=== PATIENT | male | born 1975 | race Caucasian/White ===

== ENCOUNTER 2022-03-29 13:59 | Emergency (ER) | payer OTHER, SELFPAY ==
[2022-03-29] VITALS (7 sets, daily range): BP systolic 134–147; BP diastolic 87–92; PULSE 76–94; RESP 17–32; O2SAT 95–100
--- NOTE | 2022-03-29 | XRR_ITS ---
PROCEDURE INFORMATION: Exam: XR Right Shoulder Exam date and time: 03/29/2022 3:31 PM Age: 46 years old Clinical indication: Injury or trauma; Fall; Blunt trauma (contusions or hematomas); Shoulder; Right; Injury details: Patient fell off of scaffolding TECHNIQUE: Imaging protocol: Radiologic exam of the Right shoulder. Views: 2 or more views. COMPARISON: CR XR shoulder RT min 2V* [id number] 03/29/2022 2:53 PM FINDINGS: Bones/joints: Joint surfaces are preserved. There is no fracture, malalignment or underlying osseous lesion detected. Soft tissues: Normal. XR/XR shoulder RT min 2V* [id number] IMPRESSION: Negative right shoulder
--- NOTE | 2022-03-29 14:14 | CT_ITS ---
WS: [id number] CT CERVICAL TRAUMA TECHNIQUE: Noncontrast CT of the cervical spine with coronal and sagittal reformatted images. CLINICAL INFORMATION: TRAUMA COMPARISON: None. DLP: All CT scans at [facility] use at least one of these dose optimization techniques: automated e xposure control; mA and/or kV adjustment per patient size (includes targeted exams where dose is matc hed to clinical indication); or iterative reconstruction. FINDINGS: Straightening of the normal cervical lordosis. Normal craniocervical junction. Normal C1-C2 articulat ion. Dens is normal in appearance. Normal occipital condyles. No high-grade spinal canal narrowing. N ormal C1 ring. No evidence of acute fracture or dislocation. Small amount of fluid RIGHT mastoid air cells. Temporal bone fracture described on the head CT. CT/CT cervical spin wo con* [id number] IMPRESSION: No evidence of acute fracture or dislocation.
--- NOTE | 2022-03-29 14:15 | CT_ITS ---
WS: [id number] CT CHEST, ABDOMEN, AND PELVIS TECHNIQUE: Contrast-enhanced CT of the chest, abdomen, and pelvis with coronal and sagittal reformatt ed images. CLINICAL INFORMATION: TRAUMA COMPARISON: None. DLP: 1416.[address] scans at [facility] use at least one of these dose optimization techniques: automated e xposure control; mA and/or kV adjustment per patient size (includes targeted exams where dose is matc hed to clinical indication); or iterative reconstruction. CT CHEST: Lungs are well aerated. No acute pulmonary infiltrates. No pneumothorax. Slight bibasilar atelectasis . Normal caliber thoracic aorta. No evidence of acute aortic injury. No significant pericardial effus ion. A few slightly prominent pretracheal lymph nodes likely reactive measuring up to 10 mm. Small esophageal hiatal hernia. CT ABDOMEN AND PELVIS: Normal liver. Normal portal vein and splenic vein. Normal spleen. Small esophageal hiatal hernia. Air -fluid level in the stomach. Normal caliber abdominal aorta. Adrenal glands are normal. Normal renal parenchymal enhancement. No hydronephrosis. Partial malrotation LEFT kidney. No free fluid in the abdomen or pelvis. Small fat-containing umbilical hernia. Normal pancreatic pare nchymal enhancement. Normal thoracic spine alignment. Normal lumbar spine alignment. Disc bulging L4-L5 and L5-S1. L5 is p artially lumbarized. CT/CT chest abd pel w con* IMPRESSION: No acute traumatic findings in the chest abdomen or pelvis.
--- NOTE | 2022-03-29 14:18 | CT_ITS ---
WS: [id number] CT HEAD TECHNIQUE: Noncontrast CT of the head obtained from the skullbase to the vertex. CLINICAL INFORMATION: TRAUMA- FALL COMPARISON: None. DLP: All CT scans at [facility] use at least one of these dose optimization techniques: automated e xposure control; mA and/or kV adjustment per patient size (includes targeted exams where dose is matc hed to clinical indication); or iterative reconstruction. FINDINGS: Soft tissue contusion overlying the RIGHT parietal bone. Irregular fractures involving the squamous p ortion of the RIGHT temporal bone overlying the RIGHT middle cranial fossa with additional longitudin al oriented fracture involving the petrous portion of the RIGHT temporal bone. This involves the mast oid air cells and small amount of fluid or blood products in the RIGHT mastoid air cells. Associated subcutaneous emphysema. Fracture extends cephalad involving the temporal parietal calvarium. Otic cap fran appears intact. No significant fluid in the EAC. Mild mucosal thickening along the tympanic membrane. Trace fluid in the middle ear. Retention cyst in the sphenoid sinus. Paranasal sinuses are well aerated. LEFT mastoi d air cells are well aerated. Tiny trace of fluid or extra-axial blood products deep to the RIGHT temporal fracture along the later al RIGHT temporal lobe with a small amount of intracranial air. No mass effect or midline shift. Norm al posterior fossa. No hydrocephalus. CT/CT head wo con* [id number] IMPRESSION: 1. Irregular fractures involving the squamous portion of the RIGHT temporal michel ne overlying the RIGHT middle cranial fossa. No significant depression. 2. Additional longitudinal temporal bone fracture involving the petrous portio n of the temporal bone. Small amount of fluid or blood products in the mastoid air cells. Trace fluid in the middle ear. Otic capsule appears intact. 3. Subcutaneous emphysema in the scalp with a small amount of intracranial air overlying the RIGHT superolateral temporal lobe. Tiny trace of fluid or blood products deep to the superior temporal bone fracture. 4. No mass effect or midline shift. No hydrocephalus. 5. LEFT mastoid air cells well aerated. 6. No other acute intracranial findings Notified Alex Laughlin DO at 03/29/2022 3:11 PM.
[2022-03-29] MEDS: iohexol 350 mg/mL 500 mL Btl (per mL) IV (14:33)
--- NOTE | 2022-03-29 14:50 | XRR_ITS ---
PROCEDURE INFORMATION: Exam: XR Left Shoulder Exam date and time: 03/29/2022 2:53 PM Age: 46 years old Clinical indication: Injury or trauma; Fall; Blunt trauma (contusions or hematomas); Shoulder; Right; Injury details: History--patient fell off of scaffolding TECHNIQUE: Imaging protocol: Radiologic exam of the Left shoulder. Views: 2 or more views. Total images: 1 COMPARISON: CT chest abd pel w con* 03/29/2022 2:26 PM FINDINGS: Bones/joints: Normal. Soft tissues: Normal. XR/XR shoulder LT min 2V* [id number] IMPRESSION: No acute findings.
--- NOTE | 2022-03-29 14:50 | W.ED.TRAUMA ---
HPI - Trauma General: Chief Complaint: Trauma Stated Complaint: fall, head injury Time Seen by Provider: 03/29/22 14:24 Source: other (Coworker) Mode of arrival: wheelchair Limitations: altered mental status History of Present Illness: History is predominantly provided by his coworker who witnessed the fall. History is that the patient was standing on a rolling scaffolding approximately 3 feet off of a concrete surface attaching drywall. Apparently the wheels on the mobile scaffolding were not locked and it moved and he fell off the scaffolding striking his head and right side. Coworker states he was out and had a loss of consciousness approximately 30 seconds or more. Coworker did not witness any seizure activity. He states once he became conscious he attempted to move him and noted there was some blood around his ear brought him to the emergency department. The patient is unsure of what happened to him. He states he has pain in his right shoulder and has a headache but otherwise cannot offer any additional information. MD complaint: fall Loss of Consciousness: yes Location: head Location - Extremities: Right: shoulder Associated symptoms: Reports no associated symptoms and headache(s); Denies chills, fever(s), nausea, syncope or vomiting Review of Systems Const: Denies: fever(s) or chills Eyes: Denies: change in vision Card: Denies: syncope or pre-syncope Resp: Denies: productive cough or non-productive cough GI: Denies: nausea or vomiting : Denies: difficulty urinating or dysuria Musc: Reports: extremity pain Skin/Breast: Denies: rash Neuro: Reports: headache(s) Physical Exam Narrative: EXAM NARRATIVE: Patient is alert and has spontaneous eye opening. He perseverates about why he is here and what is going on. Const: COMMON NORMALS: average body habitus GENERAL APPEARANCE: cooperative ORIENTATION/CONSCIOUSNESS: Yes awake and Yes oriented to person HENMT: COMMON NORMALS: normocephalic, atraumatic, external ears normal, Normal external nose present, moist oral mucous membranes and oropharynx normal HEAD & SCALP: normocephalic and atraumatic FACE & SINUS: normal facial exam and face symmetric NOSE: Normal external nose present; no Epistaxis present EXTERNAL EAR: Yes external ears normal EXTERNAL AUDITORY CANAL: Abnormal EAC present (He has been what appears to be blood in the posterior right EAC. The TM ap) Eye: COMMON NORMALS: Equal, round and reactive pupils present, EOMs intact bilaterally and conjunctivae normal CONJUNCTIVA: Yes conjunctivae normal PUPIL: Yes Equal, round and reactive pupils present Neck/C-Spine: COMMON NORMALS: no JVD and No carotid bruits GENERAL: Yes normal visual inspection CERVICAL SPINE: Yes collar present Chest: COMMONS NORMALS: normal inspection of the chest and normal palpation of entire chest wall Resp: COMMON NORMALS: normal respiratory effort, No retractions, No use of accessory muscles and clear to auscultation bilaterally AUSCULTATION: clear to auscultation bilaterally Cardio: COMMON NORMALS: no JVD, regular rate, No murmurs present (Cardio) and Peripheral pulses 2+ throughout RATE: regular rate PERIPHERAL PULSES: Peripheral pulses 2+ throughout GI: COMMON NORMALS: Normal to inspection, nondistended, normoactive bowel sounds present, Soft to palpation and non-tender PALPATION: Yes Soft to palpation : COMMON NORMALS: Yes no CVA tenderness BLADDER/KIDNEY EXAM: Yes no CVA tenderness Back/Pelvis: COMMON NORMALS: no CVA tenderness, thoracic and lumbar spine normal to inspection and no thoracic nor lumbar tenderness PELVIS: Yes no pain with anterior-posterior compression and Yes no pain with lateral compression SACROILIAC JOINTS: Yes SI joints normal Extremity: COMMON NORMALS: normal to inspection, no calf tenderness and no pedal edema RIGHT UPPER EXTREMITY: Yes shoulder joint (Tenderness over the acromial area and the lateral deltoid. Decreased range) Neuro: MAT COMA SCALE: document GCS findings Mat coma scale eye opening: Spontaneous Mat coma scale verbal response: Confused Mat coma scale motor response: Obey commands [place] coma scale total score: 14 COMMON NORMALS: moves all extremities, no focal motor deficits and no sensory deficits noted SENSORIUM/ORIENTATION: Yes oriented to person Skin: COMMON NORMALS: no rashes or lesions noted and no wounds GENERAL SKIN EXAM: no rashes or lesions noted Course Reevaluation(s): Reevaluation #1: Patient remains alert and stable. Cervical collar was removed and repeat evaluation of the cervical spine clinically. He had no midline tenderness to palpation. No step-offs palpated. He was able to actively range his head 45 degrees left and right as well as forward bend 15 degrees without any discomfort. Also discussed nature of current injuries with patient and family. Time: 15:28 Consultations: Consultation #1: We discussed case with trauma services at [facility] who agreed except the patient in transfer. The accepting physician is trauma surgeon Dr. Clifton Time: 16:01 Vital Signs: Vital signs: Vital Signs Pulse Rate 76 03/29/22 15:15 Respiratory Rate 24 H 03/29/22 15:15 Blood Pressure 134/88 03/29/22 14:17 Pulse Oximetry 100 03/29/22 15:15 Oxygen Delivery Me thod 03/29/22 14:59 MDM - Trauma Medical Decision Making 46-year-old normally healthy male who had a fall from height approximately 3 feet scaffolding on concrete surface. He was witnessed to strike his head and having associated approximately 30 to 60 seconds loss of consciousness. His emergency department evaluation was notable that he had blood in his right EAC and perseverating regarding his current situation. Work-up in the emergency department discovered skull fractures with no evidence of intracranial hemorrhage. His cervical spine was cleared radiographically and clinically and no other evidence of injury at this time. Because of the nature of his skull fracture and need for neurosurgical consult Tatian and comanagement which is not available at this facility is being transferred to [facility]. Medical Records I reviewed the patient's medical records. Lab Data I reviewed the patient's lab results. 03/29/22 14:40 03/29/22 14:40 Radiology Impressions Cervical Spine CT 03/29/22 14:14 IMPRESSION: No evidence of acute fracture or dislocation. Chest/Abdomen/Pelvis CT 03/29/22 14:15 IMPRESSION: No acute traumatic findings in the chest abdomen or pelvis. Head CT 03/29/22 14:18 IMPRESSION: 1. Irregular fractures involving the squamous portion of the RIGHT temporal bone overlying the RIGHT middle cranial fossa. No significant depression. 2. Additional longitudinal temporal bone fracture involving the petrous portion of the temporal bone. Small amount of fluid or blood products in the mastoid air cells. Trace fluid in the middle ear. Otic capsule appears intact. 3. Subcutaneous emphysema in the scalp with a small amount of intracranial air overlying the RIGHT superolateral temporal lobe. Tiny trace of fluid or blood products deep to the superior temporal bone fracture. 4. No mass effect or midline shift. No hydrocephalus. 5. LEFT mastoid air cells well aerated. 6. No other acute intracranial findings Notified Alex Laughlin DO at 03/29/2022 3:11 PM. Laboratory Results WBC 7.5 10^3/uL (4.0-10.0) 03/29/22 14:40 RBC 4.44 10^6/uL (4.1-5.3) 03/29/22 14:40 Hgb 13.5 g/dL (11.7-16.6) 03/29/22 14:40 Hct 39.8 % (42.0-52.0) L 03/29/22 14:40 MCV 89.6 fl (80-94) 03/29/22 14:40 MCH 30.4 pg (28.0-34.0) 03/29/22 14:40 MCHC 33.9 g/dL (30.0-36.0) 03/29/22 14:40 RDW 12.1 % (12.1-15.1) 03/29/22 14:40 Plt Count 254 10^3/cmm (130-400) 03/29/22 14:40 MPV 9.7 fL (7.4-10.4) 03/29/22 14:40 Neut % (Auto) 75.2 % 03/29/22 14:40 Lymph % (Auto) 15.0 % 03/29/22 14:40 [place] % (Auto) 7.0 % 03/29/22 14:40 Eos % (Auto) 1.7 % 03/29/22 14:40 Baso % (Auto) 0.7 % 03/29/22 14:40 Neut # (Auto) 5.66 10^3/uL (1.8-7.7) 03/29/22 14:40 Lymph # (Auto) 1.1 10^3/uL (0.8-4.8) 03/29/22 14:40 [place] # (Auto) 0.5 10^3/uL (0.2-0.9) 03/29/22 14:40 Eos # (Auto) 0.1 10^3/uL (0.0-0.8) 03/29/22 14:40 Baso # (Auto) 0.1 10^3/uL (0.0-0.1) 03/29/22 14:40 Nucleated RBC % (auto) 0 % 03/29/22 14:40 Nucleated RBCs # 0.0 /100WBC 03/29/22 14:40 Sodium 134 mmol/L (136-145) L 03/29/22 14:40 Potassium 4.4 mmol/L (3.5-5.1) 03/29/22 14:40 Chloride 102 mmol/L (98-107) 03/29/22 14:40 Carbon Dioxide 21 mmol/L (22-29) L 03/29/22 14:40 Anion Gap 15.4 (5-19) 03/29/22 14:40 BUN 14 mg/dL (6-20) 03/29/22 14:40 Creatinine 0.6 mg/dL (0.7-1.2) L 03/29/22 14:40 GFR Calculation 145.0 mL/min (90-130) H 03/29/22 14:40 Glucose 142 mg/dL (65-115) H 03/29/22 14:40 Calculated Osmolality 281 mOsm/kg (285-295) L 03/29/22 14:40 Calcium 8.6 mg/dL (8.5-10.5) 03/29/22 14:40 Total Bilirubin 0.3 mg/dL (0.15-1.2) 03/29/22 14:40 AST 21 U/L (0-40) 03/29/22 14:40 ALT 19 U/L (0-41) 03/29/22 14:40 Alkaline Phosphatase 95 U/L (40-130) 03/29/22 14:40 Total Protein 6.3 g/dL (6.6-8.7) L 03/29/22 14:40 Albumin 4.0 g/dL (3.5-5.2) 03/29/22 14:40 Globulin 2.3 g/dL (1.3-4.6) 03/29/22 14:40 Discharge Plan Discharge Patient Disposition: Xfer Short-Term Hosp Clinical Impression: Fall, Skull fractures Condition: Stable Prescriptions: No Action No Known Home Medications 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
[2022-03-29 14:59] LABS: Basophils # 0.1 10^3/uL (0.0-0.1); Basophils % 0.7 %; Eosinophils # 0.1 10^3/uL (0.0-0.8); Eosinophils % 1.7 %; Hematocrit 39.8 % (42.0-52.0); Hemoglobin 13.5 g/dL (11.7-16.6); Lymphocytes # 1.1 10^3/uL (0.8-4.8); Mean Corpuscular HGB Conc 33.9 g/dL (30.0-36.0); Mean Corpuscular Hemoglobin 30.4 pg (28.0-34.0); Mean Corpuscular Volume 89.6 fl (80-94); Mean Platelet Volume 9.7 fL (7.4-10.4); Monocytes # 0.5 10^3/uL (0.2-0.9); Neutrophils # 5.66 10^3/uL (1.8-7.7); Neutrophils % 75.2 %; Nucleated Red Blood Cells % 0 %; Platelet Count 254 10^3/cmm (130-400); Red Blood Count 4.44 10^6/uL (4.1-5.3); Red Cell Distribution Width 12.1 % (12.1-15.1); White Blood Count 7.5 10^3/uL (4.0-10.0)
[2022-03-29 15:39] LABS: Alanine Aminotransferase 19 U/L (0-41); Alkaline Phosphatase 95 U/L (40-130); Anion Gap 15.4 (5-19); Aspartate Amino Transferase 21 U/L (0-40); Blood Urea Nitrogen 14 mg/dL (6-20); Calcium 8.6 mg/dL (8.5-10.5); Carbon Dioxide 21 mmol/L (22-29); Chloride 102 mmol/L (98-107); Globulin 2.3 g/dL (1.3-4.6); Glucose 142 mg/dL (65-115); Osmolality Calculated 281 mOsm/kg (285-295); Potassium 4.4 mmol/L (3.5-5.1); Sodium 134 mmol/L (136-145); Total Bilirubin 0.3 mg/dL (0.15-1.2); Total Protein 6.3 g/dL (6.6-8.7)
[2022-03-29] MEDS: tetanus-dipt-pertussis 0.5 mL SDV IM (15:50)
[2022-03-29] MEDS: fentaNYL 50 mcg/mL INJ 2mL 25 MCG IVP (15:59)
[2022-03-29] MEDS: ondansetron 2 mg/ML SDV 2 mL 4 MG IVP (16:38)
== END 2022-03-29 16:40 | disposition short-term general hospital (02) ==
PROVIDERS: Emergency Provider Emergency Medicine
DX: S02.19XA Other fracture of base of skull, initial encounter for closed fracture (principal); W12.XXXA Fall on and from scaffolding, initial encounter; Z23 Encounter for immunization
CPT/HCPCS: 70450; 71260; 72125; 73030; 74177; 80053; 85025; 90471; 90715; 96374; 96375; 99285; J2405; J3010; Q9967

== ENCOUNTER 2022-03-30 20:32 | Emergency (ER) | payer OTHER, SELFPAY ==
[2022-03-30 20:45] VITALS: BP 147/94; PULSE 70; RESP 18; TEMP 36.4; O2SAT 96
--- NOTE | 2022-03-30 21:14 | CTR_ITS ---
PROCEDURE INFORMATION: Exam: CT Head Without Contrast Exam date and time: 03/30/2022 9:55 PM Age: 46 years old Clinical indication: Injury or trauma; Fracture, traumatic; Other: N/v lethargy; Patient HX: C/O continued head pain with n/v and lethargy. Sustained a RT temporal fracture from fall off of scaffold on 03/29/2022; Additional info: N/v, HX recent head trauma TECHNIQUE: Imaging protocol: Computed tomography of the head without contrast. Radiation optimization: All CT scans at this facility use at least one of these dose optimization techniques: automated exposure control; mA and/or kV adjustment per patient size (includes targeted exams where dose is matched to clinical indication); or iterative reconstruction. COMPARISON: CT head wo con* [id number] 03/29/2022 2:10 PM RADIATION DOSE METRICS: Total DLP (mGy-cm): 1057.58 FINDINGS: Brain: Minimal extra-axial blood products/fluid deep to the temporal bone fracture are unchanged. No new hemorrhage. No mass effect. No midline shift. No acute infarct. Cerebral ventricles: No ventriculomegaly. Paranasal sinuses: Scattered paranasal sinus mucosal thickening, without air-fluid level present. Mastoid air cells: Moderate right mastoid effusion is unchanged. Bones/joints: Not significantly displaced fracture of the right squamous temporal bone with additional longitudinally oriented otic capsule sparing mastoid right temporal bone fracture, unchanged. Superior extension of the fracture line of the parietal bone is unchanged. Minimal overlying subcutaneous emphysema is unchanged. Soft tissues: See Mastoid air cells finding. CT/CT head wo con* [id number] IMPRESSION: 1. Stable head CT. 2. Stable right temporal bone fractures, extending superior to the parietal bone. Stable minimal extra-axial blood product/fluid deep to the fracture site. No new hemorrhage. No mass effect or midline shift.
--- NOTE | 2022-03-30 21:54 | PC.NURSE ---
to CT per wheelchair
--- NOTE | 2022-03-30 22:11 | W.ED.HEATRA ---
HPI - Head Injury General: Chief complaint: Nausea/Vomiting/Diarrhea Stated complaint: post concussion; vomitting blood; chills Time Seen by Provider: 03/30/22 22:11 History of Present Illness: 46-year-old male patient comes in [facility] for concerns of nausea and headache. Patient had a trauma yesterday afternoon when he fell off a scaffolding striking his head against concrete. Patient sustained a skull fracture. Today he was concerned due to some nausea and vomiting which was noticeable for some blood. Patient appears nontoxic. Patient appears in moderate pain. Patient reports not tolerating hydrocodone and minimal relief with ondansetron. Associated symptoms: Reports nausea Review of Systems GI: Reports: nausea Neuro: Reports: headache(s) Physical Exam Const: COMMON NORMALS: patient oriented x3 HENMT: HEAD & SCALP: scalp tenderness (Right side) EXTERNAL EAR: Yes other (Blood in the right ear canal) Eye: COMMON NORMALS: Equal, round and reactive pupils present PUPIL: Yes Equal, round and reactive pupils present Neck/C-Spine: COMMON NORMALS: full ROM Resp: COMMON NORMALS: normal respiratory effort and clear to auscultation bilaterally AUSCULTATION: clear to auscultation bilaterally Cardio: COMMON NORMALS: regular rate and regular rhythm RATE: regular rate RHYTHM: regular rhythm GI: COMMON NORMALS: Soft to palpation and non-tender PALPATION: Yes Soft to palpation Extremity: COMMON NORMALS: normal to inspection Neuro: COMMON NORMALS: patient oriented x3 Skin: COMMON NORMALS: turgor normal GENERAL SKIN EXAM: turgor normal Course Vital Signs: Vital signs: Vital Signs Temperature 97.6 F 03/30/22 20:45 Pulse Rate 70 03/30/22 22:19 Respiratory Rate 22 H 03/30/22 22:19 Blood Pressure 150/93 03/30/22 22:19 Pulse Oximetry 97 03/30/22 22:19 Oxygen Delivery Me thod 03/30/22 22:19 MDM - Head Injury Medcial Decision Making Patient comes in today for complaints of nausea and headache with emesis. Patient also reports some blood in his emesis that was noted by his female significant other. On exam abdomen soft nontender. No pain in the ribs is noted. Lungs are clear to auscultation. Patient does have dried blood in the right nares and right ear canal. Pupils are equal and reactive. Differential diagnosis includes but not limited to epistaxis, skull fracture, concussion, intracranial bleeding. CT of the head noted a stable fracture of the skull with no increase intracranial bleeding or other abnormality. Believe the blood that was noted in the emesis was most likely due to the drainage. Patient was treated with ketorolac and Reglan for his symptoms. Patient is scheduled for appointment with neurology tomorrow. Patient will keep his appointment and follow-up with them in the morning. Lab Data Radiology Impressions Head CT 03/30/22 21:14 IMPRESSION: 1. Stable head CT. 2. Stable right temporal bone fractures, extending superior to the parietal bone. Stable minimal extra-axial blood product/fluid deep to the fracture site. No new hemorrhage. No mass effect or midline shift. Discharge Plan Discharge Patient Disposition: Home Clinical Impression: Skull fractures Condition: Stable Prescriptions: No Action No Known Home Medications Discharge Orders: Discharge ED (Routine); Ordered 03/30/22 Ordered By: Tom Cruz Discharge Diet: Usual diet Discharge Activity: Increase activity as tolerated Patient Instructions: Skull Fracture (ED) Activity Restrictions/Additional Instructions: Home and rest. Continue with routine care as directed. Use medication as tolerated. You may use Tylenol or ibuprofen for control of pain. Use hydrocodone for severe pain. Follow-up with primary care for further instruction. Keep appointments as scheduled tomorrow. 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
[2022-03-30 22:19] VITALS: BP 150/93; PULSE 70; RESP 22; O2SAT 97
[2022-03-30] MEDS: metoclopramide 5 mg/mL SDV 2 mL 10 MG IM (22:29)
[2022-03-30] MEDS: ketorolac 30 mg/mL INJ IM (22:29)
== END 2022-03-30 23:30 | disposition home or self-care (01) ==
PROVIDERS: Emergency Provider Nurse Practitioner Family
DX: S02.19XA Other fracture of base of skull, initial encounter for closed fracture (principal); W12.XXXA Fall on and from scaffolding, initial encounter
CPT/HCPCS: 70450; 96372; 99284; J1885; J2765

== ENCOUNTER 2022-07-05 06:58 | Outpatient (CLI) | payer OTHER, SELFPAY ==
--- NOTE | 2022-07-05 07:15 | MR_ITS ---
WS: [id number] MRI HEAD WITH CONTRAST WITH ATTENTION TO THE INTERNAL AUDITORY CANALS TECHNIQUE: Sagittal T1, T2 axial, T2 axial flair, axial susceptibility weighted imaging, axial diffus ion weighted images, and coronal T2 images were obtained. Pre and post T1 axial and post T1 coronal i mages. ADC and FSPGR images. Post gadolinium images with attention to the internal auditory canals. A xial fiesta imaging. CLINICAL INFORMATION: postconcussional syndrome COMPARISON: CT March 30, 2022 and MRI 2005 FINDINGS: Chiari I malformation unchanged since 2005. Mild crowding at the foramen magnum. No hydrocephalus. No restricted diffusion to suggest acute ischemia. Ventricular system and basal cisterns are patent. A few small foci of T2 hyperintensity in the periventricular white matter nonspecific in a patient this age but can be seen with migraine headaches. Normal vascular flow voids at the skull base. No extra-axial fluid collections. No evidence of mass o r mass effect. Mild mucosal thickening in the paranasal sinuses. Mastoid air cells well aerated. Prev iously described RIGHT temporal bone fracture better evaluated on the prior CT. Presented described s ubdural hematoma has resolved Proximal 7th and 8th cranial nerves appear normal. RIGHT middle ear is well aerated. RIGHT mastoid air cells well aerated. Cavernous sinuses and Meckel's cave appear normal . No evidence of enhancing IAC or CP angle mass. No abnormal intracranial enhancement. Normal dural reba ous sinuses. Normal pituitary enhancement. Tiny focus of hypoenhancement within the pituitary likely incidental tiny pars intermedia cyst. MR/MR iac's wo/w con* [id number] IMPRESSION: 1. No evidence of enhancing IAC or CP angle mass. 2. Mastoid air cells well aerated. Middle ears are well aerated bilaterally. 3. Proximal 7th and 8th cranial nerves appear normal. Previously described RIG HT anterior temporal bone fracture better appreciated on the prior PET/CT. 4. Stable Chiari I malformation. No hydrocephalus. Mild crowding at the forame n magnum unchanged since 2005. Recommend MRI cervical spine to exclude cervical syrinx. No prior cervical MRI imaging. 5. A few tiny foci of T2 hyperintensity periventricular white matter of doubtf ul clinical significance but can be seen with migraine headaches. 6. No hemosiderin on susceptibly weighted images.
[2022-07-05] MEDS: gadobenate dimeglumine 20 mL vial IV (08:07)
== END 2022-07-05 06:59 | disposition home or self-care (01) ==
LOC: RAD 07:02
PROVIDERS: Visit Provider Otolaryngology
DX: F07.81 Postconcussional syndrome (principal); H91.91 Unspecified hearing loss, right ear; H93.11 Tinnitus, right ear; S02.19XD Other fracture of base of skull, subsequent encounter for fracture with routine healing; X58.XXXD Exposure to other specified factors, subsequent encounter; G93.5 Compression of brain
CPT/HCPCS: 70553; A9577

== ENCOUNTER 2022-10-10 18:26 | Emergency (ER) | payer OTHER, SELFPAY ==
[2022-10-10 18:32] VITALS: BP 150/99; PULSE 107; RESP 18; TEMP 36.8; O2SAT 96; BMI 32.1
[2022-10-10 21:44] VITALS: BP 136/105; PULSE 81; RESP 18; O2SAT 98
--- NOTE | 2022-10-10 21:54 | ED_ITS ---
HPI - General Adult General: Chief complaint: Airway/Esophagus Foreign Body Stated complaint: Something Stuck in Throat Time Seen by Provider: 10/10/22 21:39 Source: patient Mode of arrival: ambulatory Limitations: no limitations History of Present Illness: 47-year-old male states he was eating steak this afternoon and has a piece of steak stuck in his esophagus. States he has not been able to tolerate solids or liquids over the last 7 hours. He states he had this happen once before 5 years ago had to have an EGD. Denies any vomiting Associated symptoms: Deny chest pain, dyspnea, headache(s), nausea, rash or vomiting Review of Systems Const: Denies: fever(s) or chills ENMT: Denies: throat pain or dental pain Card: Denies: chest pain Resp: Denies: dyspnea GI: Denies: abdominal pain, nausea, vomiting or diarrhea : Denies: dysuria Musc: Denies: neck pain or back pain Skin/Breast: Denies: rash Neuro: Denies: headache(s) PFSH ED PFSH: Medical History Hx of fracture of skull Traumatic rupture of ear drum Surgical History Hx of appendectomy Hx of hernia repair Social History Smoking and tobacco status: never smoked Physical Exam Const: COMMON NORMALS: no acute distress, patient oriented x3 and healthy appearing HENMT: COMMON NORMALS: normocephalic and atraumatic HEAD & SCALP: normoce phalic and atraumatic Eye: COMMON NORMALS: conjunctivae normal CONJUNCTIVA: Yes conjunctivae normal Neck/C-Spine: COMMON NORMALS: full ROM and supple Chest: COMMONS NORMALS: normal inspection of the chest Resp: COMMON NORMALS: normal respiratory effort Cardio: COMMON NORMALS: regular rate and No murmurs present (Cardio) RATE: regular rate GI: INSPECTION: Yes normal to inspection Extremity: COMMON NORMALS: normal to inspection and full ROM Neuro: COMMON NORMALS: patient oriented x3, moves all extremities and no focal motor deficits Psych: COMMON NORMALS: mental status grossly normal, Normal thought process present and cooperative THOUGHT PROCESS: Normal thought process present Skin: COMMON NORMALS: no rashes or lesions noted and no wounds GENERAL SKIN EXAM: no rashes or lesions noted Course Vital Signs: Vital signs: Vital Signs Temperature 98.2 F 10/10/22 18:32 Pulse Rate 81 10/10/22 21:44 Respiratory Rate 18 10/10/22 21:44 Blood Pressure 136/105 10/10/22 21:44 Pulse Oximetry 98 10/10/22 21:44 Oxygen Delivery Me thod Room Air 10/10/22 21:44 MDM - General Adult Medical Decision Making Patient presents with an esophageal food impaction spoke to surgeon on-call he is going to take to GI lab for an EGD at this time. 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
--- NOTE | 2022-10-10 22:44 | P.CONIM_ITS ---
Providers/Reason For Consult Consulting Physician/Specialty*: General Surgery Reason for Consult*: Esophageal foreign body Requesting Physician: Dr. Keny Anders History of Present Illness History of Present Illness Marco Macario is a 47 year old male Who presents to our emergency department complaining of difficulty swallowing after ingesting steak for dinner. Patient states that around 3 PM he swallowed a piece of steak after which he noticed he had difficulty swallowing and could not regurgitate the food or have it pass d own with water. He denies any other symptoms.Has not had any vomit after he swallowed a steak. Review of Systems Review of Systems: All systems PM: reviewed and no additional remarkable complaints except as stated Constitutional: normal sleep Ears, nose, mouth, throat: tinnitus Respiratory: other (normal ) Gastrointestinal: other (dysphagia during current presentation) Medications/Allergies Home Medications Medication Instructions Recorded Confirmed Last Taken Type No Known Home Medications 03/29/22 09/11/22 Unknown History Allergies Allergy/AdvReac Type Severity Reaction Status Date / Time morphine Allergy Unknown Unknown Verified 09/11/22 15:46 PFSH Acute PFSH: Medical History Hx of fracture of skull Traumatic rupture of ear drum Surgical History Hx of appendectomy Hx of hernia repair Social History Smoking and tobacco status: never smoked Vitals/I&O/Wt Last Vital Signs Temp 98.2 F 10/10/22 18:32 Pulse 81 10/10/22 21:44 Resp 18 10/10/22 21:44 BP 136/105 10/10/22 21:44 Pulse Ox 98 10/10/22 21:44 O2 Del Method Room Air 10/10/22 21:44 Weight last 48 hrs Weight 205 lb Physical Exam Narrative: General : Patient is well developed , no acute distress, oriented x3 Head : Normal cephalic, a-traumatic. Throat : mild drooling, no evidence of foreign body visualized from mouth Lungs : Equal chest rise bilaterally, no use of accessory muscles, trachea is midline. CV : Rate and rhythm are normal. Abdomen : Soft, ND, NT, no g/r/m Back : non-tender to palpation, no CVA tenderness. A&P Assessment and plan (1) Food impaction of esophagus: 47-year-old male who presents with food impaction in the esophagus, patient has history of previous events of food impaction and he usually is able to pass the full by swallowing or regurgitating the food. Today he ate a steak around 3 PM and after that he has not been able to swallow any liquids feels like the steak has gotten stuck in his esophagus. Physical examination is unremarkable. Vital signs are within normal limits. At this point we plan to take the patient to the endoscopy suite to attempt at retrieval of the esophageal foreign body. Patient was informed of the risk and benefits of the procedure including the risk of esophageal perforation that we will require additional surgical intervention and management at higher level of care facility. He was also inform of the risk of esophageal mucosa Tearing, Bleeding, need for additional procedures, need for prolonged hospital stay. Patient acknowledges the risks and decides to proceed with EGD and retrieval of foreign body. Coding Level of Care Code 24419 Diagnoses Food impaction of esophagus T18.128A
--- NOTE | 2022-10-10 22:48 | P.ANESASSM_ITS ---
Pre-Anesthetic Assessment Height/Weight: Height 1.7 m Weight 92.986 kg Temp Pulse Resp BP Pulse Ox O2 Del Method 98.2 F 81 18 136/105 98 Room Air 10/10/22 18:32 10/10/22 21:44 10/10/22 21:44 10/10/22 21:44 10/10/22 21:44 10/10/22 21:44 Operation Date: 10/10/22 23:00 Proposed Procedures p Foreign Body Removal- Food Bolus(Not Applicable) - Medhat Lehman MD Familial anesthetic complications: None Was Beta Sivakumar taken within 24 hours: N/A Was Clonidine taken within 24 hours: N/A Last intake: > 8 hrs Social No alcohol and No tobacco Exam alert, oriented x 3, clear to auscultation bilaterally and regular rate & rhythm Airway Mallampati: Class II Dentition: full Pulmonary hx of pleurisy Neuropsych hx skull fracture Anesthetic Plan ASA status: 2 Anesthesia: General Risk of > 500 ml blood loss (7ml/kg in children): No Medications/Allergies Home Medications Medication Instructions Recorded Confirmed Last Taken Type No Known Home Medications 03/29/22 09/11/22 Unknown History Allergies Allergy/AdvReac Type Severity Reaction Status Date / Time morphine Allergy Unknown Unknown Verified 09/11/22 15:46 [facility] Anesthesia Medical History Hx of fracture of skull Traumatic rupture of ear drum Surgical History Hx of appendectomy Hx of hernia repair Social History Smoking and tobacco status: never smoked Data Anesthesia Cardiac Studies: No Data to Display
[2022-10-10 22:50] VITALS: BP 150/105; PULSE 84; RESP 18; O2SAT 94
[2022-10-10] MEDS: sodium chloride 0.9% 1,000 ML 30 ML IV (22:54)
[2022-10-11] VITALS (9 sets, daily range): BP systolic 125–165; BP diastolic 70–114; PULSE 70–77; RESP 13–27; TEMP 36.1; O2SAT 95–98
--- NOTE | 2022-10-11 00:45 | ANE.PACU2 ---
Inpatient post-anesthesia follow up: Airway intact: Yes Vital signs: Temperature 97.0 F Pulse Rate 70 Respiratory Rate 15 Blood Pressure 162/80 Pulse Oximetry 98 Oxygen Delivery Me thod Room Air Oxygen Flow Rate Fraction of Inspir ed Oxygen Hydration adequate: Yes Nausea and vomiting: No Pain level: 1 Mental status: Baseline
--- NOTE | 2022-10-12 08:59 | DCPLANNER ---
equipment hire manager called patient due to no primary care physician - patient declines at this time.
== END 2022-10-10 22:49 | disposition home or self-care (01) ==
PROVIDERS: Surgery; Emergency Provider Emergency Medicine
DX: T18.128A Food in esophagus causing other injury, initial encounter (principal); X58.XXXA Exposure to other specified factors, initial encounter
CPT/HCPCS: 43247; 96360; 96361; 99255; 99285; J0330; J1100; J2405; J2704; J3010; J7030

== ENCOUNTER → 2023-02-20 14:15 | Outpatient (BNVA) | payer OTHER, SELFPAY | PROVIDERS: PCP Family Medicine; Visit Provider Family Medicine | DX: R07.9 Chest pain, unspecified (principal); R06.02 Shortness of breath; Z83.2 Family history of diseases of the blood and blood-forming organs and certain disorders involving the immune mechanism; R00.2 Palpitations | CPT/HCPCS: 80048; 80061; 83036; 83735; 84443; 85025; 85651; 86038; 86140; 86431 ==

== ENCOUNTER 2023-09-18 18:49 | Emergency (ER) | payer OTHER, SELFPAY ==
[2023-09-18 19:06] VITALS: BP 159/92; PULSE 76; RESP 14; TEMP 36.4; O2SAT 96
--- NOTE | 2023-09-18 19:24 | ED_ITS ---
HPI - Animal Bite General: Chief Complaint: Animal Bite Stated Complaint: Attacked by og\Face Time Seen by Provider: 09/18/23 19:13 History of Present Illness: Presents to the ER with a dog bite to his face. This happened about 30 minutes ago. It is his friend's dog. They can watch the dog. Patient had a tetanus shot done last year. Patient has complaints of puncture wound to his left eye region, left side of his nose laceration, little right cheek laceration. Bleeding is controlled. Review of Systems General: Reports: 10 or more systems reviewed and unremarkable except in HPI and below PFS ED PFS: Medical History Umbilical hernia History of skull fracture right temporal bone Chiari I malformation Traumatic rupture of ear drum Surgical History History of left inguinal hernia repair as History of appendectomy History of esophagogastroduodenoscopy (EGD) 10/10/[address] [facility] Family History Father , Cardiac Heart attack Diabetes Mother , COVID No problems noted. Grandfather Cancer bone cancer Social History Smoking and tobacco/nicotine status: never used tobacco/nicotine Alcohol intake: current Alcohol intake frequency: holidays/special occasions only Alcohol type: wine Substance/Drug Use: never Lives independently: Yes Household members: spouse Marital status: Number of children: 1 service: No Current occupational status: employed Current occupation: [employer] Physical Exam Const: COMMON NORMALS: no acute distress, average body habitus, patient oriented x3, no limitations, healthy appearing, alert and well nourished HENMT: COMMON NORMALS: normocephalic, atraumatic, Normal nasal mucous membranes and turbinates present, moist oral mucous membranes and oropharynx normal; external nose not normal (Laceration to left ala of the nose) HEAD & SCALP: normocephalic and atraumatic NOSE: Normal nasal mucous membranes and turbinates present; external nose not normal (Laceration to left ala of the nose) Eye: COMMON NORMALS: Equal, round and reactive pupils present, EOMs intact bilaterally, conjunctivae normal and no scleral icterus CONJUNCTIVA: Yes conjunctivae normal PUPIL: Yes Equal, round and reactive pupils present Chest: COMMONS NORMALS: normal inspection of the chest and normal palpation of entire chest wall Resp: COMMON NORMALS: normal respiratory effort, No retractions and No use of accessory muscles GI: COMMON NORMALS: Normal to inspection, nondistended, normoactive bowel sounds present, Soft to palpation, non-tender, No hepatosplenomegaly present and no masses PALPATION: Yes Soft to palpation and Yes No hepatosplenomegaly present Neuro: COMMON NORMALS: patient oriented x3 SENSORIUM/ORIENTATION: Yes alert Skin: NARRATIVE SKIN EXAM: Laceration to left medial canthus region puncture type, laceration to left nasal ala, not all the way through, laceration to right lateral external cheek, will not spread with pressure. Bleeding is controlled. Course Vital Signs: Vital signs: Vital Signs Temperature 97.5 F L 09/18/23 19:06 Pulse Rate 76 09/18/23 19:06 Respiratory Rate 14 09/18/23 19:06 Blood Pressure 159/92 09/18/23 19:06 Pulse Oximetry 96 09/18/23 19:06 Oxygen Delivery Me thod Room Air 09/18/23 19:06 MDM - Animal Bite Medical Decision Making These areas were cleaned with warm water and a 4 x 4, bleeding was controlled. Discussed the case with the patient about possibly putting in some fine sutures to keep these areas approximated. Patient said this not needed as long as bleeding is controlled and we put him on antibiotic he is okay with the scars that we will leave these areas. He is not inclined to have sutures with more scarring. Patient be discharged home on Augmentin. Differential Diagnosis Likely bite by animal and dog bite Medical Records I reviewed the patient's medical records. Lab Data I reviewed the patient's lab results. No radiology studies performed this visit Discharge Plan Discharge Patient Disposition: Home Clinical Impression: Dog bite, Face lacerations Condition: Stable Prescriptions: New amoxicillin-pot clavulanate 875-125 mg tablet 1 tab PO Q12H Qty: 20 0RF No Action amitriptyline 10 mg tablet 20 mg PO DAILY Qty: 60 0RF metoprolol succinate 25 mg tablet extended release 24 hr 25 mg PO DAILY Qty: 90 1RF Discharge Orders: Discharge ED (Routine); Ordered 09/18/23 Ordered By: Kashif Walters Referrals: Rhiannon Peres MD [Primary Care Provider] - 7-10 days Patient Instructions: Animal Bite (ED), Facial Laceration (ED), Laceration Without Closure (ED) Activity Restrictions/Additional Instructions: You have been prescribed antibiotic to lower the risk of infection. Please keep your wounds clean and dry and dressings applied to them as needed. I would suggest a thin layer of triple antibiotic ointment on them once a day to help keep the scab soft and help with scarring. Your lacerations were not closed because this will create more scarring and potentially trap bacteria in the woun d. Please follow-up with your family practice physician within the next 7 to 10 days for reevaluation. If your wounds become more painful, more red, or draining any purulent debris please return to the ER immediately. 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
[2023-09-18] MEDS: amoxicillin-clav 875-125 mg Tablet 1 TAB PO (19:36)
[2023-09-18 19:53] VITALS: BP 159/92; PULSE 76; RESP 14; TEMP 36.4; O2SAT 96
== END 2023-09-18 19:54 | disposition home or self-care (01) ==
PROVIDERS: Emergency Provider Emergency Medicine; PCP Family Medicine
DX: S01.451A Open bite of right cheek and temporomandibular area, initial encounter (principal); S01.25XA Open bite of nose, initial encounter; S01.152A Open bite of left eyelid and periocular area, initial encounter; W54.0XXA Bitten by dog, initial encounter
CPT/HCPCS: 99283

== ENCOUNTER 2023-11-28 15:05 | Outpatient (CLI) | payer OTHER, SELFPAY ==
--- NOTE | 2023-11-28 15:15 | MR_ITS ---
WS: [id number] MRI BRAIN WITHOUT CONTRAST HISTORY: f/u chiari malformation, increased symptoms COMPARISON: 07/05/2022 TECHNIQUE: Diffusion imaging, multiplanar T1, T2 and FLAIR imaging obtained. No evidence for acute infarct or hemorrhage. [place]-white matter differentiation is normal. A few foci of T2 hyperintensity in the periventricular white matter. Nonspecific at this age group. N o prior large territory infarct. Normal hippocampal formation. Ventricles and extra-axial spaces are normal. Reidentified is a Chiari I malformation. Cerebellar tonsils descend inferiorly by 6.3 mm. Mild crowdi ng at the foramen magnum. No hydrocephalus. Dural venous sinuses and [place] of [place] demonstrate no abnormality on this unenhanced studies. Paranasal sinuses: Mild mucoperiosteal thickening surrounding the RIGHT maxillary sinus. No air-fluid levels. Mastoid air cells: Normal. Calvarium and scalp: Intact. MR/MR head wo con* [id number] IMPRESSION: 1. Stable mild Chiari I malformation. No hydrocephalus. 2. No acute infarct and no prior infarct. 3. Minimal T2 hyperintense foci in the periventricular white matter. Probably not of clinical significance. Can be related to migraines, hypertension, diabet es and smoking.
== END 2023-11-28 15:06 | disposition home or self-care (01) ==
LOC: RAD 15:06
PROVIDERS: PCP Family Medicine; Visit Provider Family Medicine
DX: G93.5 Compression of brain (principal); R55 Syncope and collapse
CPT/HCPCS: 70551

== ENCOUNTER 2024-07-25 13:31 | Outpatient (CLI) | payer OTHER, SELFPAY ==
--- NOTE | 2024-07-25 13:45 | MR_ITS ---
WS: [id number] MRI LEFT SHOULDER HISTORY: worsening pain, now w/ reduced rom COMPARISON: Radiograph 03/29/2022 TECHNIQUE: Multiplanar sequences of the shoulder joint are submitted. Severe AC joint arthritis. Hypertrophic bone formation and soft tissue formation. Mild osteophyte encroachment upon the supraspinatus. Mild subacromial impingement due to an enthesopathy at the distal undersurface of the acromion. No significant subacromial joint effusion. No os acromion. Normal biceps tendon in the bicipital groove. There is a small amount of increased fluid within the biceps tendon sheath. Moderate narrowing of the glenohumeral joint. Slightly high riding humeral head. Increased T2 signal in the axillary pouch. Mild osteophytic ridging around the glenoid and humeral head. Mild tendinopathy in the distal supraspinatus tendon. There is deformity of the supraspinatus muscle and tendon over the humeral head by subacromial impingement. Infraspinatus tendon is intact. Increased signal in the distal subscapularis tendon. Seen best on the sagittal sequences is increased T2 signal in the distal subscapularis tendon consistent with an interstitial tear. Normal coracohumeral ligament. Posterior labral tear. Intrasubstance degeneration of the superior labrum but no definite tear. MR/MR shoulder LT wo con* [id number] IMPRESSION: 1. Severe AC joint arthritis with encroachment upon the supraspinatus muscle a nd tendon. 2. Subacromial impingement resulting in mild supraspinatus tendinopathy. 3. No supraspinatus tendon tear. 4. Interstitial tear distal subscapularis tendon with superimposed tendinopath y. 5. Thickening of the axillary pouch with increased T2 signal consistent with a dhesive capsulitis. 6. Posterior labral tear. 7. Mild glenohumeral joint arthritis.
== END 2024-07-25 13:32 | disposition home or self-care (01) ==
LOC: RAD 13:34
PROVIDERS: PCP Family Medicine; Visit Provider Family Medicine
DX: M75.42 Impingement syndrome of left shoulder (principal); M19.012 Primary osteoarthritis, left shoulder; S46.812A Strain of other muscles, fascia and tendons at shoulder and upper arm level, left arm, initial encounter; X58.XXXA Exposure to other specified factors, initial encounter; R93.7 Abnormal findings on diagnostic imaging of other parts of musculoskeletal system; S43.492A Other sprain of left shoulder joint, initial encounter; M89.38 Hypertrophy of bone, other site; M25.712 Osteophyte, left shoulder; M67.814 Other specified disorders of tendon, left shoulder
CPT/HCPCS: 73221

== ENCOUNTER → 2024-08-14 09:52 | Outpatient (BNVA) | payer OTHER, SELFPAY | PROVIDERS: PCP Family Medicine; Visit Provider Orthopaedic Surgery | DX: Z01.818 Encounter for other preprocedural examination (principal) | CPT/HCPCS: 80053; 81001; 85025 ==

== ENCOUNTER 2024-09-10 09:25 | Day surgery (SDC) | payer OTHER, SELFPAY ==
[2024-09-10] VITALS (7 sets, daily range): BP systolic 127–152; BP diastolic 81–108; PULSE 73–97; RESP 16–20; TEMP 36.4–36.5; O2SAT 94–97
--- NOTE | 2024-09-10 09:53 | W.PM.OPSUD ---
Surgery/Procedure H&P Update DATE OF PROCEDURE: September 10, 2024 DATE H&P PERFORMED: 08/27/24 H&P UPDATE INFORMATION: I have reviewed H&P completed within last 30 days, I have examined patient prior to procedure and No changes to prior documentation PREOP DIAGNOSIS: Left shoulder labral tear, acromial impingement PLANNED PROCEDURE: Operation Date: 09/10/24 11:10 Proposed Procedures p Shoulder Arthroscopy(Left) - Tong Arredondo MD s Shoulder Decompression(Left) - Tong Arredondo MD
[2024-09-10] MEDS: sodium chloride 0.9% 1,000 ML 30 ML IV (10:07)
[2024-09-10] MEDS: ceFAZolin 2,000 mg SDV 2000 MG IVP (10:25)
--- NOTE | 2024-09-10 10:27 | ANES.PREANE2 ---
Pre-Anesthetic Assessment Height/Weight: Height 1.7 m Weight 100.244 kg Temp Pulse Resp BP Pulse Ox O2 Del Method 97.7 F 80 16 152/100 96 Room Air 09/10/24 09:54 09/10/24 09:54 09/10/24 09:54 09/10/24 09:54 09/10/24 09:54 09/10/24 09:54 Preop Diagnosis: Left shoulder labral tear, acromial impingement Operation Date: 09/10/24 11:10 Proposed Procedures p Shoulder Arthroscopy(Left) - Tong Arredondo MD s Shoulder Decompression(Left) - Tong Arredondo MD Familial anesthetic complications: None Was Beta Sivakumar taken within 24 hours: N/A Was Clonidine taken within 24 hours: N/A Last intake: Intake Last Liquid Date 09/09/24 Last Liquid Time 21:00 Last Solid Date 09/09/24 Last Solid Time 16:00 Social No alcohol and No tobacco Exam alert, oriented x 3, clear to auscultation bilaterally and regular rate & rhythm Airway Mallampati: Class II Dentition: full Pulmonary hx pleurisy Neuropsych hx chiari hx skull fracture Anesthetic Plan ASA status: 2 Anesthesia: General and Regional (specify below) Risk of > 500 ml blood loss (7ml/kg in children): No Medications/Allergies Home Medications ?Medication ?Instructions ?Recorded ?Confirmed ?Last Taken ?Type meloxicam 15 mg tablet 15 mg PO DAILY #30 tabs 08/31/24 09/09/24 09/03/24 Rx Allergies Allergy/AdvReac Type Severity Reaction Status Date / Time morphine Allergy Unknown Unknown Verified 08/27/24 09:08 shellfish derived Allergy ALGY-Anaphy Verified 08/27/24 09:08 laxis clemente nuts Allergy Intermediate ALGY-Wheezi Uncoded 08/27/24 09:08 ng Current Medications Generic Name Dose Route Start Last Admin Trade Name Freq PRN Reason Stop Dose Admin Sodium Chloride 1,000 mls @ 30 mls/hr 09/10/24 09:45 09/10/24 10:07 Sodium Chloride 0.9% IV 09/11/24 09:44 30 mls/hr .Q24H GAMAL Administration PFSH Anesthesia Medical History Umbilical hernia History of skull fracture right temporal bone Chiari I malformation Traumatic rupture of ear drum Surgical History History of left inguinal hernia repair as infant History of appendectomy History of esophagogastroduodenoscopy (EGD) 10/10/22 Dr. Lehman at [facility] Family History Father , Cardiac Heart attack Diabetes Mother , COVID No problems noted. Grandfather Cancer bone cancer Social History Smoking and tobacco/nicotine status: never used tobacco/nicotine Alcohol intake: current Alcohol intake frequency: holidays/special occasions only Alcohol type: wine Substance/Drug Use: never Lives independently: Yes Household members: spouse Marital status: Number of children: 1 service: No Current occupational status: employed Current occupation: [employer] Anesthesia Procedures Nerve Block Nerve Block 1: Main Anesthesia: general anesthesia Time Out Performed: Yes Consent: requested by attending/covering physician, from patient, from other, risks and benefits reviewed and patient agrees to proceed Nerve block location: interscalene (R) Anesthesia monitors applied: pulse oximetry, EKG and BP cuff Nerve block position: semi sitting Anesthetic Used: ropivicaine 0.5% (20 ml) and with decadron (4 mg) Ultrasound used to: recognize landmarks, visualize and ID brachial plexus, in supraclavicular region and visualize and ID interscalene groove Nerve Stimulator Used?: No Interscalene/Femoral BLK: 2 stimuplex 22 g needle used for position and inplane approach, visualize local anesthetic spread and no vascular puncture identified Injection: neg aspiration of heme Patient Tolerated Procedure: well Complications: none
--- NOTE | 2024-09-10 12:01 | PM.OP ---
Operative Report Date of procedure: September 10, 2024 Surgeon: Tong Arredondo MD Procedure: Preoperative diagnosis: Internal derangement left shoulder with acromial impingement, AC arthritis, labral tears Postoperative diagnosis: Torn anterior labrum and posterior labrum, loose body of articular cartilage, hypertrophic bursa, impingement of the acromion, and AC arthritis. Procedure: Diagnostic left shoulder arthroscopy with labral debridement both anterior and posterior. Anterior labral repair, removal of loose bodies, subacromial decompression with acromioplasty and AC joint decompression as well as bursectomy. Surgeon: Tong Arredondo MD House Mover Helper: RENETTA Moore's assistance was necessary for positioning the patient, assistance during the procedure, wound closure, placement of an abduction pillow and sling, transfer the patient to the PACU Anesthesia: General With preoperative scalene block EBL: None Indications: Marco is a 49-year-old white male who presented to the orthopedic clinics with debilitating left shoulder pain, loss of motion, catching and an crepitation within the shoulder. Subsequent MRI demonstrated anterior labral tearing as well as posterior labral tear. Impingement of the acromion on the rotator cuff as well as a bulbous osteoarthritic AC joint. Having failed all conservative measures he was offered a diagnostic shoulder arthroscopy with all indicated procedures. All risk benefits treatment alternatives were discussed with him and he is agreeable to this at this time. Procedure: After obtaining written consent patient had preoperative skin block administered to his left shoulder in the preop holding area. Patient was then taken to the operating room placed on the operative table supine position general anesthetic administered. Once good anesthesia was achieved patient was placed in a beachchair position padded and secured to the bed appropriately. Left shoulder and arm were prepped and draped usual fashion. After surgical timeout standard portals made #11 blade to the posterior aspect the glenohumeral joint line. Camera cannula was placed within the glenohumeral joint. Anterior working portal was placed just inferior to the clavicle at the level of the glenohumeral joint line. Glenohumeral joint was then evaluated and it is noted that there is a complete tear away of the labrum from the anterior glenoid from about the level of the anterior inferior glenohumeral ligament up to the base of the biceps tendon. Also noticed there is a piece of the loose articular cartilage floating within the shoulder measuring about 1 cm in diameter. This loose body was removed with a grasper.debridement of the labrum was done down to stable cartilaginous space. Posterior labrum was also debrided after being evaluated however this did not need repair. Second anterior inferior working portal was placed within the shoulder. Subsequently using juggernaut anchor was sutured anchors labrum was repaired back to the anterior glenoid as well as suturing the base of the biceps tendon insertion. A total of 3 anchors were placed for repair of the labrum. Once this was achieved the camera was then placed in the subacromial space which was highly inflamed with gross amounts of bursa. The bursa was removed with a thermal probe and mechanical shaver. A Large acromial hook was identified anteriorly as well as a bulbous AC joint. Using a barrel bur through the anterior superior incision as well as a fourth portal that was made off of the lateral aspect the acromion,an acromioplasty was undertaken until adequate debridement. As well as decompression of the AC joint. When adequate decompression had been achieved the shoulder was washed with copious amounts of sterile water. Cannulas were removed. Wounds are closed with 4-0 Prolene interrupted sutures. Wounds are dressed with Xeroform gauze, sterile gauze dressing, ABDs and adhesive tape. Patient placed in abduction pillow and sling. Patient was then transported to the PACU in stable condition
--- NOTE | 2024-09-10 13:50 | ANE.PACU2 ---
Inpatient post-anesthesia follow up: Airway intact: Yes Vital signs: Temperature 97.5 F Pulse Rate 73 Respiratory Rate 20 Blood Pressure 142/95 Pulse Oximetry 94 Oxygen Delivery Me thod Room Air Oxygen Flow Rate Fraction of Inspir ed Oxygen Hydration adequate: Yes Nausea and vomiting: No Pain level: 1 Mental status: Baseline
== END 2024-09-10 13:50 | disposition home or self-care (01) ==
PROVIDERS: PCP Family Medicine; Visit Provider Orthopaedic Surgery
PROC: (CPT 29805; principal; 2024-09-10 10:50)
PROC: (CPT 29826; 2024-09-10 10:50)
DX: M24.812 Other specific joint derangements of left shoulder, not elsewhere classified (principal); S43.492A Other sprain of left shoulder joint, initial encounter; M24.012 Loose body in left shoulder; M89.412 Other hypertrophic osteoarthropathy, left shoulder; M75.42 Impingement syndrome of left shoulder; M19.012 Primary osteoarthritis, left shoulder
CPT/HCPCS: 29822; 29826; C1713; J0690; J1100; J2250; J2405; J2704; J2795; J3010; J3490; J7030; J9999

== ENCOUNTER → 2024-11-07 12:59 | Outpatient (BNVA) | payer OTHER, SELFPAY | PROVIDERS: PCP Family Medicine; Visit Provider Family Medicine | DX: R42 Dizziness and giddiness (principal) | CPT/HCPCS: 80053; 83735; 84443; 85025 ==